=== PATIENT | female | born 1930 | race Caucasian/White ===

== ENCOUNTER 2016-05-26 04:14 | Emergency (ER) | payer MEDICARE, MEDICAID ==
[~2016-05-26] VITALS: Ht 167.6 cm; Wt 90.7 kg
[~2016-05-26 04:14] MED LIST: ATOR10TA PO; OMEP10CA4 PO
[2016-05-26] MEDS ORDERED: LORAZEPAM 1 MG TABLET PO ONE (04:30)
[2016-05-26] MEDS ORDERED: CLONIDINE HCL 0.1 MG TABLET PO ONE (04:30)
[2016-05-26] MEDS ORDERED: LORAZEPAM 1 MG TABLET ONE (04:33)
[2016-05-26] MEDS ORDERED: CLONIDINE HCL 0.1 MG TABLET ONE (04:33)
[2016-05-26 05:17] LABS: CALCIUM, SERUM 8.5 mg/dL (8.5-10.1); CREATININE 0.9 mg/dL (0.6-1.3); POTASSIUM 4.5 mmol/L (3.5-5.1)
[2016-05-26 05:18] LABS: HEMOGLOBIN 13.2 g/dL (11.5-14.8); RED BLOOD CELL COUNT(AUTO) 4.45 MIL/uL (4.0-5.2); WHITE BLOOD COUNT (AUTO) 6.3 K/uL (4.3-11.0)
[2016-05-26 05:19] LABS: BASOPHILS # (AUTO) 0.1 /CMM (0.0-0.2); BASOPHILS % (AUTO) 0.9 % (0.0-2.0); DIFF TOTAL % 100 %; EOSINOPHILS # (AUTO) 0.2 /CMM (0.0-0.7); EOSINOPHILS % (AUTO) 3.1 % (0.0-6.0); HEMATOCRIT 40 % (33-45); LYMPHOCYTES % (AUTO) 32.3 % (20.0-44.0); MEAN CORPUSCULAR HEMOGLOBIN 30 PG (26.0-33.0); MEAN CORPUSCULAR HGB CONC 33 g/dl (31.0-36.0); MEAN CORPUSCULAR VOLUME 90 fL (82-100); MONOCYTES # (AUTO) 0.5 /CMM (0.1-1.30); MONOCYTES % (AUTO) 7.5 % (2.0-12.0); NEUTROPHILS # (AUTO) 3.5 /CMM (1.8-8.9); NEUTROPHILS % (AUTO) 56.2 % (43.0-81.0); PLATELET COUNT (AUTO) 209 /CMM (150-450)
[2016-05-26 05:23] LABS: BILIRUBIN,DIRECT 0.1 mg/dL (0.0-0.2); BILIRUBIN,TOTAL 0.6 mg/dL (0.2-1.0); INDIRECT BILIRUBIN 0.5 mg/dL (0.0-1.1); TOTAL PROTEIN, SERUM 6.7 g/dL (6.4-8.2)
[2016-05-26 06:30] VITALS: BP 172/79
== END 2016-05-26 06:32 | disposition home or self-care (01) ==
LOC: EDUNIT# 04:14 → ER 04:24
DX: F41.9 Anxiety disorder, unspecified (principal); I10 Essential (primary) hypertension; R40.4 Transient alteration of awareness; E78.00 Pure hypercholesterolemia, unspecified; M25.561 Pain in right knee; G89.29 Other chronic pain
CPT/HCPCS: 36415; 70450-TC; 80048-TC; 80076-TC; 85025-TC; A4606; Z7610

== ENCOUNTER 2017-01-31 00:49 | Emergency (ER) | payer MEDICARE, MEDICAID ==
[~2017-01-31] VITALS: Ht 170.2 cm; Wt 81.6 kg
--- NOTE | 2017-01-31 00:52 | NUR ---
BB RA FROM HOME FOR BURNING WITH URINATION. PT AO RR EVEN AND UNLABORED. NO SOB NOTED. NAD NOTED. NO NVD AT THIS TIME. PT GOWNED AND PLACED ON MONITOR WAITING FOR MD JETER. DAUGHTER AT BEDSIDE
--- NOTE | 2017-01-31 00:52 | NUR ---
Pt SLIMRA ACCOMPANIED BY FAMILY. D/T PAIN ON URINATION. Pt WAITING IN ER BED 2. IN STABLE CONDITION. WAITING TO BE SEEN BY .
--- NOTE | 2017-01-31 02:08 | NUR ---
URINE SAMPLE COLLECTED. LAB NOTIFIED.
[2017-01-31 02:10] LABS: APPEARANCE,URINE CLEAR (CLEAR); BILIRUBIN,URINE NEGATIVE (NEGATIVE); BLOOD, URINE NEGATIVE Ery/uL (NEGATIVE); COLOR,URINE YELLOW (YELLOW); KETONES,URINE NEGATIVE (NEGATIVE); LEUKOCYTE ESTERASE ,URINE 1+ (NEGATIVE); NITRITE, URINE NEGATIVE (NEGATIVE); PROTEIN,URINE NEGATIVE (NEGATIVE); UGLUCOSE NEGATIVE (NEGATIVE); UROBILINOGEN,URINE 0.2 EU/dL (0.2)
--- NOTE | 2017-01-31 02:15 | NUR ---
BLADDER SCANNER DONE. URINE RETENTION OF 61ML.
[2017-01-31 02:22] LABS: RBC,URINE NONE SEEN /HPF (0-2); WBC,URINE 25-35 /HPF (0-3)
[2017-01-31 02:23] LABS: BACTERIA,URINE None seen /HPF (None Seen); SQUAMOUS EPITHELIAL CELL,UR Few /HPF (None Seen)
--- NOTE | 2017-01-31 03:10 | NUR ---
Patient discharged to home in stable condition. Written and verbal after care instructions given. Patient verbalizes understanding of instruction. Accompanied with daughter at bedside. Discharged with wheelchair. Pt in waiting room with daughter waiting for taxi for transport back home.
[2017-01-31 03:19] VITALS: BP 140/58
== END 2017-01-31 03:10 | disposition home or self-care (01) ==
LOC: ER 00:51
DX: N30.90 Cystitis, unspecified without hematuria (principal); E78.00 Pure hypercholesterolemia, unspecified; G89.29 Other chronic pain; I10 Essential (primary) hypertension
CPT/HCPCS: 81001; 87086; 99284; A4606; 81000-TC; Z7610

== ENCOUNTER 2017-03-02 20:13 | Emergency (ER) | payer MEDICARE, MEDICAID ==
[~2017-03-02] VITALS: Ht 162.6 cm; Wt 59.0 kg
--- NOTE | 2017-03-02 20:15 | NUR ---
PT BIBRA FROM HOME TO ER BED 10. C/O HYPERTENSION, TREMORS WORST IN THE MORNING. PT ALSO C/O BUZZING IN THE EARS. GOWNED AND PLACED ON MONITOR. STABLE VITALS AT THIS TIME. FAMILY AT BEDSIDE TO TRANSLATE. AWAITING MD JETER.
--- NOTE | 2017-03-02 20:41 | NUR ---
DR CAMPBELL AT BEDSIDE FOR EVAL.
--- NOTE | 2017-03-02 20:41 | NUR ---
Jennifer mendez in [facility] - 03/02/17 at [address] CAMPBELL AT [facility].
--- NOTE | 2017-03-02 20:55 | NUR ---
IV LINE STARTED BLOOD DRAWN AND SENT TO LAB.
--- NOTE | 2017-03-02 20:59 | NUR ---
RADIOLOGY AT BEDSIDE FOR CHEST XRAY.
[2017-03-02 21:00] LABS: BASOPHILS % (AUTO) 0.7 % (0.0-2.0); EOSINOPHILS # (AUTO) 0.2 /CMM (0.0-0.7); EOSINOPHILS % (AUTO) 2.9 % (0.0-6.0); HEMATOCRIT 39 % (33-45); HEMOGLOBIN 13.1 g/dL (11.5-14.8); LYMPHOCYTES % (AUTO) 29.1 % (20.0-44.0); MEAN CORPUSCULAR HEMOGLOBIN 30 PG (26.0-33.0); MEAN CORPUSCULAR HGB CONC 34 g/dl (31.0-36.0); MEAN CORPUSCULAR VOLUME 89 fL (82-100); MONOCYTES # (AUTO) 0.6 /CMM (0.1-1.30); MONOCYTES % (AUTO) 8.9 % (2.0-12.0); NEUTROPHILS % (AUTO) 58.4 % (43.0-81.0); PLATELET COUNT (AUTO) 263 /CMM (150-450); RDW COEFFICIENT OF VARIATION 12.9 (11.5-15.0); RED BLOOD CELL COUNT(AUTO) 4.37 MIL/uL (4.0-5.2); WHITE BLOOD COUNT (AUTO) 6.8 K/uL (4.3-11.0)
[2017-03-02 21:10] LABS: CALCIUM, SERUM 8.7 mg/dL (8.5-10.1); CARBON DIOXIDE 27 mmol/L (21-32); CHLORIDE 99 mmol/L (98-107); GLUCOSE 113 mg/dL (74-106); POTASSIUM 4.6 mmol/L (3.5-5.1); SODIUM SERUM 133 mmol/L (136-145); UREA NITROGEN, BLOOD 19 mg/dL (7-18)
[2017-03-02 21:16] LABS: ALANINE AMINOTRANSFERASE 18 U/L (12-78); ALKALINE PHOSPHATASE 73 U/L (46-116); ASPARTATE AMINOTRANSFERASE 20 U/L (15-37); BILIRUBIN,DIRECT 0.1 mg/dL (0.0-0.2); BILIRUBIN,TOTAL 0.3 mg/dL (0.2-1.0); TOTAL PROTEIN, SERUM 6.7 g/dL (6.4-8.2)
[2017-03-02 21:17] LABS: TROPONIN I < 0.017 ng/mL (0.00-0.056)
[2017-03-02 21:17] LABS: APPEARANCE,URINE Clear (CLEAR); BILIRUBIN,URINE Negative (NEGATIVE); BLOOD, URINE Trace-lysed Ery/uL (NEGATIVE); COLOR,URINE Yellow (YELLOW); KETONES,URINE Negative (NEGATIVE); LEUKOCYTE ESTERASE ,URINE Small (NEGATIVE); NITRITE, URINE Negative (NEGATIVE); PH,URINE 5.5 (5.0-8.0); PROTEIN,URINE Negative (NEGATIVE); UGLUCOSE Negative (NEGATIVE); UROBILINOGEN,URINE 0.2 EU/dL (0.2)
[2017-03-02 21:47] LABS: BACTERIA,URINE Few /HPF (None Seen)
[2017-03-02 21:48] LABS: SQUAMOUS EPITHELIAL CELL,UR Moderate /HPF (None Seen)
[2017-03-02 22:26] VITALS: BP 132/76
--- NOTE | 2017-03-02 22:26 | NUR ---
Patient discharged to home in stable condition. Written and verbal after care instructions given. Patient verbalizes understanding of instruction.IV removed. Catheter intact and site benign. Pressure and 4x4 applied to site. No bleeding noted.
== END 2017-03-02 22:27 | disposition home or self-care (01) ==
LOC: ER 20:16
DX: R51 Headache (principal); R53.1 Weakness; R11.0 Nausea; I10 Essential (primary) hypertension; J90 Pleural effusion, not elsewhere classified; E78.00 Pure hypercholesterolemia, unspecified; F41.9 Anxiety disorder, unspecified
CPT/HCPCS: 36415; 70450; 71010; 80048; 80076; 81001; 84484; 85025; 93005; 99285; A4606; 81000-TC; Z7610

== ENCOUNTER 2017-03-12 22:04 | Inpatient (IN) | payer MEDICARE, MEDICAID ==
[~2017-03-12] VITALS: Ht 167.6 cm; Wt 86.2 kg
--- NOTE | 2017-03-12 22:06 | NUR ---
pt bibra from home to er bed 09. pt is w/ daughter w/ multiple complaints. dauther states pt is not feeling well x 3 days. blood pressure is always high. small urine output. also c/o ble swelling noted today. pt is gowned and placed on monitor. stabel vitals. awaiting md andres.
--- NOTE | 2017-03-12 22:25 | NUR ---
dr perkins at bedside for eval.
[2017-03-12] MEDS ORDERED: ASPIRIN 81 MG TAB.CHEW PO ONE (22:30)
--- NOTE | 2017-03-12 22:41 | NUR ---
iv line started blood drawn and sent to lab.
[2017-03-12 22:49] LABS: BASOPHILS % (AUTO) 0.4 % (0.0-2.0); EOSINOPHILS # (AUTO) 0.2 /CMM (0.0-0.7); EOSINOPHILS % (AUTO) 2.4 % (0.0-6.0); HEMATOCRIT 40 % (33-45); LYMPHOCYTES % (AUTO) 25.9 % (20.0-44.0); MEAN CORPUSCULAR HEMOGLOBIN 29 PG (26.0-33.0); MEAN CORPUSCULAR HGB CONC 33 g/dl (31.0-36.0); MEAN CORPUSCULAR VOLUME 90 fL (82-100); MONOCYTES # (AUTO) 0.7 /CMM (0.1-1.30); NEUTROPHILS # (AUTO) 4.8 /CMM (1.8-8.9); NEUTROPHILS % (AUTO) 62.3 % (43.0-81.0); PLATELET COUNT (AUTO) 244 /CMM (150-450); RDW COEFFICIENT OF VARIATION 13.5 (11.5-15.0); RED BLOOD CELL COUNT(AUTO) 4.41 MIL/uL (4.0-5.2); WHITE BLOOD COUNT (AUTO) 7.7 K/uL (4.3-11.0)
[2017-03-12] MEDS ORDERED: ASPIRIN 81 MG TAB.CHEW ONE (22:49)
--- NOTE | 2017-03-12 22:59 | NUR ---
radiology at bedside for chest xray.
[2017-03-12 23:04] LABS: INR 0.99 (0.87-1.13); PROTHROMBIN TIME 10.3 SECS (9.5-12.7)
[2017-03-12 23:09] LABS: TROPONIN I < 0.017 ng/mL (0.00-0.056)
--- NOTE | 2017-03-12 23:09 | NUR ---
pt to radiology for abdominal ct scan via [facility].
[2017-03-12 23:14] LABS: ALANINE AMINOTRANSFERASE 18 U/L (12-78); ALBUMIN 3.2 g/dL (3.4-5.0); ALKALINE PHOSPHATASE 75 U/L (46-116); ASPARTATE AMINOTRANSFERASE 16 U/L (15-37); B-TYPE NATRIURETIC PEPTIDE 240 PG/ML (0-125); BILIRUBIN,DIRECT 0.1 mg/dL (0.0-0.2); BILIRUBIN,TOTAL 0.4 mg/dL (0.2-1.0); CALCIUM, SERUM 8.9 mg/dL (8.5-10.1); CARBON DIOXIDE 26 mmol/L (21-32); CHLORIDE 90 mmol/L (98-107); GLUCOSE 110 mg/dL (74-106); LIPASE 255 U/L (73-393); POTASSIUM 4.4 mmol/L (3.5-5.1); SODIUM SERUM 122 mmol/L (136-145); TOTAL PROTEIN, SERUM 6.9 g/dL (6.4-8.2); UREA NITROGEN, BLOOD 26 mg/dL (7-18)
[2017-03-12 23:14] LABS: APPEARANCE,URINE CLEAR (CLEAR); BILIRUBIN,URINE NEGATIVE (NEGATIVE); BLOOD, URINE TRACE-INTA Ery/uL (NEGATIVE); COLOR,URINE YELLOW (YELLOW); KETONES,URINE NEGATIVE (NEGATIVE); LEUKOCYTE ESTERASE ,URINE 1+ (NEGATIVE); NITRITE, URINE NEGATIVE (NEGATIVE); PH,URINE 5.5 (5.0-8.0); PROTEIN,URINE NEGATIVE (NEGATIVE); UGLUCOSE NEGATIVE (NEGATIVE); UROBILINOGEN,URINE 0.2 EU/dL (0.2)
[2017-03-12 23:22] LABS: BACTERIA,URINE None seen /HPF (None Seen)
[2017-03-12 23:23] LABS: SQUAMOUS EPITHELIAL CELL,UR Few /HPF (None Seen)
--- NOTE | 2017-03-12 23:35 | NUR ---
PAGED DR. BISWAS
--- NOTE | 2017-03-12 23:40 | NUR ---
mallorie verbal order for 250cc ns bolus. carried out.
--- NOTE | 2017-03-12 23:50 | NUR ---
report given to sandy. pt awaiting transfer to floor.
[2017-03-13] VITALS (8 sets, daily range): BP systolic 103–166; BP diastolic 53–81
[2017-03-13] MEDS ORDERED: Z GUARD REMEDY 2 OZ OINT TP PRN
[2017-03-13] MEDS ORDERED: IV NS 0.9% 1,000 ML BAG IV ONE
[2017-03-13] MEDS ORDERED: HYDROCODONE/APAP 5/325MG 1 EACH TABLET PO PRN
[2017-03-13] MEDS ORDERED: MAG HYDROX/AL HYDROX/SIMETH 30 ML UDC PO PRN
[2017-03-13] MEDS ORDERED: ZOLPIDEM TARTRATE 5 MG TABLET PO PRN
[2017-03-13] MEDS ORDERED: ACETAMINOPHEN 325 MG TABLET PO PRN
[2017-03-13] MEDS ORDERED: ALBUTEROL FS 2.5 MG/3 ML VIAL.NEB NEB PRN
[2017-03-13] MEDS ORDERED: MAGNESIUM HYDROXIDE 30 ML UDC PO PRN
[2017-03-13] MEDS ORDERED: ONDANSETRON HCL/PF 4 MG/2 ML VIAL IVP PRN
[2017-03-13] MEDS ORDERED: IV NS 0.9% 1,000 ML IV SCH
[2017-03-13 00:43] LABS: OSMOLALITY,SERUM 261 mOS/kg (278-305); OSMOLALITY,URINE 327 mOS/kg (340-1090)
[2017-03-13] MEDS ORDERED: CEFTRIAXONE 1 G VIAL ONE (00:55)
[2017-03-13] MEDS ORDERED: hydrALAZINE HCL 25 MG TABLET ONE (00:56)
--- NOTE | 2017-03-13 01:00 | NUR ---
TELE WELDING MACHINE OPERATOR [employer] INITIAL NOTES RECEIVED PT FROM ER VIA JANEEN ACCOMPANIED BY ER NURSE , EMANUEL OF HYPONATREMIA. PT BURUNDIAN SPEAKING ACCOMPANIED BY HER DAUGHTER THAT HELPED TO TRANSLATE AND AT THE SAME TIME PROVIDE SOME INFORMATION . PT IS ALERT ORIENTED , AMBULATORY AND BURUNDIAN SPEAKING ONLY. ORIENTED WHERE SHE AT AND HOW TO USED THE CALL LIGHT SYSTEM. DENIES ANY PAIN OR ANY DISCOMFORT. SKIN WARM AND DRY TO TOUCH. BREATHING EVEN AND NON-LABORED. TELE APPLIED AND EXPLAINED TO THE DAUGHTER AND PT WHAT THE PURPOSE OF IT AND PT UNDERSTOOD WELL, KEPT HER WARM AND COMFORTABLE AT ALL TIMES. PLACE CALL LIGHT AT REACH. BED ALARM SET FOR PT SAFETY.
[2017-03-13] MEDS: hydrALAZINE HCL 25 MG TABLET PO PRN (01:06)
[2017-03-13] MEDS: CEFTRIAXONE 1 G in IV D5W 50 ML IV SCH (01:19)
[2017-03-13 06:43] LABS: EOSINOPHILS # (AUTO) 0.3 /CMM (0.0-0.7); EOSINOPHILS % (AUTO) 4.2 % (0.0-6.0); HEMATOCRIT 38 % (33-45); HEMOGLOBIN 12.7 g/dL (11.5-14.8); LYMPHOCYTES # (AUTO) 1.9 /CMM (0.8-4.8); LYMPHOCYTES % (AUTO) 27.7 % (20.0-44.0); MEAN CORPUSCULAR HEMOGLOBIN 30 PG (26.0-33.0); MEAN CORPUSCULAR HGB CONC 34 g/dl (31.0-36.0); MEAN CORPUSCULAR VOLUME 89 fL (82-100); MONOCYTES # (AUTO) 0.7 /CMM (0.1-1.30); MONOCYTES % (AUTO) 9.8 % (2.0-12.0); NEUTROPHILS % (AUTO) 58.3 % (43.0-81.0); PLATELET COUNT (AUTO) 229 /CMM (150-450); RDW COEFFICIENT OF VARIATION 12.8 (11.5-15.0); RED BLOOD CELL COUNT(AUTO) 4.22 MIL/uL (4.0-5.2); WHITE BLOOD COUNT (AUTO) 6.8 K/uL (4.3-11.0)
[2017-03-13 06:54] LABS: CALCIUM, SERUM 8.4 mg/dL (8.5-10.1); CARBON DIOXIDE 25 mmol/L (21-32); CHLORIDE 96 mmol/L (98-107); GLUCOSE 99 mg/dL (74-106); MAGNESIUM 1.7 mg/dL (1.8-2.4); PHOSPHORUS 3.2 mg/dL (2.5-4.9); POTASSIUM 4.1 mmol/L (3.5-5.1); SODIUM SERUM 129 mmol/L (136-145); UREA NITROGEN, BLOOD 20 mg/dL (7-18)
[2017-03-13 07:11] LABS: TROPONIN I < 0.017 ng/mL (0.00-0.056)
[2017-03-13 07:13] LABS: CHOLESTEROL 196 mg/dL (<200); HDL CHOLESTEROL 50 mg/dL (40-60); LDL 123 mg/dL (0-99); TRIGLYCERIDES 85 mg/dL (30-150)
[2017-03-13 07:50] LABS: THYROID STIMULATING HORMONE 2.074 uIU/mL (0.358-3.74)
[2017-03-13] MEDS: LISINOPRIL (10MG) 10 MG TABLET PO SCH (09:17)
[2017-03-13] MEDS: ASPIRIN 81 MG TAB.CHEW PO SCH (09:18)
[2017-03-13] MEDS: Magnesium 1GM/D5W 100ML PREMIX 100 ML IV SCH ×2 (09:20→10:51)
[2017-03-13] MEDS ORDERED: Magnesium 1GM/D5W 100ML PREMIX 100 ML IV SCH (10:00)
[2017-03-13] MEDS ORDERED: FUROSEMIDE 20 MG/2 ML VIAL IV ONE (11:30)
--- NOTE | 2017-03-13 13:00 | NUR ---
EVE IN TO SEE PT. ORDERS GIVEN.SPOKE TO DTR. AT LENGTH.
--- NOTE | 2017-03-13 14:00 | NUR ---
MG. REPLACEMENT DONE,FAMILY IN TO VISIT.
[2017-03-13 16:59] LABS: URINE SODIUM, RANDOM 77 mmol/l (40-220)
--- NOTE | 2017-03-13 19:30 | NUR ---
RN NOTES RECEIVED PT. AWAKE ON BED, A/OX4, TUVALUAN SPEAKING, DENIES PAIN, NO SOB, CALL LIGHT WITHIN REACH, SIDERAILS UPX2 CONTINUE TO MONITOR
[2017-03-13 19:44] LABS: OSMOLALITY,URINE 327 mOS/kg (340-1090)
[2017-03-13] MEDS: ATORVASTATIN 10 MG TABLET PO SCH (22:24)
[2017-03-14] MEDS: CEFTRIAXONE 1 G in IV D5W 50 ML IV SCH (00:41)
--- NOTE | 2017-03-14 06:29 | NUR ---
RN NOTES AWAKE, DENIES PAIN, NO SOB, MORNING CARE RENDERED, CALL LIGHT WITHIN REACH, SIDERAILS UPX2 PT. NEEDS ATTENDED
[2017-03-14 06:50] LABS: CALCIUM, SERUM 8.3 mg/dL (8.5-10.1); CARBON DIOXIDE 26 mmol/L (21-32); CHLORIDE 98 mmol/L (98-107); GLUCOSE 87 mg/dL (74-106); PHOSPHORUS 3.7 mg/dL (2.5-4.9); POTASSIUM 4.4 mmol/L (3.5-5.1); SODIUM SERUM 131 mmol/L (136-145); UREA NITROGEN, BLOOD 15 mg/dL (7-18)
[2017-03-14 06:52] LABS: THYROID STIMULATING HORMONE 1.992 uIU/mL (0.358-3.74)
[2017-03-14 07:27] LABS: OSMOLALITY,URINE 272 mOS/kg (340-1090)
[2017-03-14 07:52] LABS: URINE SODIUM, RANDOM 51 mmol/l (40-220)
[2017-03-14 08:00] VITALS: BP 112/53
--- NOTE | 2017-03-14 08:15 | NUR ---
MS RN NOTES PATIENT IN BED, AWAKE. A/O X3, FRENCH SPEAKING, COOPERATIVE. BREATH SOUNDS CLEAR. IV IN LEFT AC INTACT, APPEARS COMFORTABLE IN BED, HAS BSC. CALL LIGHT WITHIN REACH. WILL CONT TO MONITOR.
[2017-03-14] MEDS: LISINOPRIL (10MG) 10 MG TABLET PO SCH (08:32)
[2017-03-14] MEDS: ASPIRIN 81 MG TAB.CHEW PO SCH (08:32)
[2017-03-14] MEDS ORDERED: HYDROCHLOROTHIAZIDE 25 MG TABLET PO SCH (09:00)
[2017-03-14 16:00] VITALS: BP 116/59
--- NOTE | 2017-03-14 18:47 | NUR ---
MS RN CLOSING NOTES PATIENT IN BED, A/O X3. BREATHING EVEN AND NON LABORED, NO SOB. COOPERATIVE. PATIENT IS AMBULATORY WITH ASSIST/WALKER. DENIES ANY DISCOMFORT. ON ANTIBIOTIC WITH NO ADVERSE REACTION, AFEBRILE. INSTRUCTED TO USE CALL LIGHT IF SHE NEEDS ASSISTANCE. CONT HOSPITALIZATION PER MD, WILL ENDORSE TO ANCHORMAN RN FOR JOMAR.
[2017-03-14 20:00] VITALS: BP 159/54
--- NOTE | 2017-03-14 20:00 | NUR ---
RN NOTES RECEIVED PATIENT IN BED, ALERT AND ORIENTED X3, GIBRALTARIAN SPEAKING ONLY, NO DISTRESS, TOLERATING ROOM AIR, NO COMPLAIN OF PAIN, ON WATER RESTRICTION SECONDARY TO HYPONATREMIA, CONTINENT OF BOWEL AND BLADDER, ABLE TO USE BSC WITH ASSISTANCE. NEEDS ATTENDED, CALL LIGHT WITHIN REACH.
[2017-03-14] MEDS: ATORVASTATIN 10 MG TABLET PO SCH (22:34)
[2017-03-14] MEDS: hydrALAZINE HCL 25 MG TABLET PO PRN (22:34)
[2017-03-15] MEDS: CEFTRIAXONE 1 G in IV D5W 50 ML IV SCH (00:14)
--- NOTE | 2017-03-15 00:15 | NUR ---
RN NOTES RECEIVED REPORT FROM OUTGOING RN. PATIENT IS ALERT AND ORIENTED X3, ST HELENIAN SPEAKING, ABLE TO VERBALIZE NEEDS, NO DISTRESS, TOLERATING ROOM AIR, ABLE TO TRANSFER FROM BED TO BEDSIDE COMMODE WITH ASSISTANCE. CONTINENT OF BOWEL AND BLADDER, MADE SAFE AND COMFORTABLE, CALL LIGHT WITHIN REACH.
--- NOTE | 2017-03-15 06:20 | NUR ---
RN NOTES PATIENT IS AWAKE AND ALERT, NO SOB, NO DISTRESS, DENIES ANY PAIN AT THIS TIME, ASSISTED TO BSC, ALL NEEDS ATTENDED, CALL LIGHT WITHIN REACH.
--- NOTE | 2017-03-15 07:15 | NUR ---
MS RN NOTES PATIENT IN BED, LYING COMFORTABLY. AWAKE, A/O X3. BREATHING NON LABORED, NO SOB. ON FLUID RESTRICTION, INSTRUCTED PATIENT TO USE CALL LIGHT IF SHE NEEDS ASSISTANCE, VERBALIZED UNDERSTANDING. BED LOW AND LOCKED, SIDE RAILS UP X2. WILL CONT TO MONITOR.
[2017-03-15 08:00] VITALS: BP 130/69
[2017-03-15 08:02] LABS: CALCIUM, SERUM 8.5 mg/dL (8.5-10.1); CARBON DIOXIDE 25 mmol/L (21-32); CHLORIDE 97 mmol/L (98-107); CREATININE 0.9 mg/dL (0.6-1.3); GLUCOSE 98 mg/dL (74-106); MAGNESIUM 1.9 mg/dL (1.8-2.4); PHOSPHORUS 3.5 mg/dL (2.5-4.9); POTASSIUM 4.6 mmol/L (3.5-5.1); SODIUM SERUM 129 mmol/L (136-145); UREA NITROGEN, BLOOD 13 mg/dL (7-18)
[2017-03-15 08:23] LABS: BASOPHILS % (AUTO) 0.2 % (0.0-2.0); EOSINOPHILS # (AUTO) 0.1 /CMM (0.0-0.7); EOSINOPHILS % (AUTO) 2.3 % (0.0-6.0); HEMATOCRIT 38 % (33-45); HEMOGLOBIN 12.4 g/dL (11.5-14.8); LYMPHOCYTES # (AUTO) 1.7 /CMM (0.8-4.8); LYMPHOCYTES % (AUTO) 27.9 % (20.0-44.0); MEAN CORPUSCULAR HEMOGLOBIN 29 PG (26.0-33.0); MEAN CORPUSCULAR HGB CONC 33 g/dl (31.0-36.0); MEAN CORPUSCULAR VOLUME 89 fL (82-100); MONOCYTES # (AUTO) 0.6 /CMM (0.1-1.30); MONOCYTES % (AUTO) 9.9 % (2.0-12.0); NEUTROPHILS # (AUTO) 3.7 /CMM (1.8-8.9); NEUTROPHILS % (AUTO) 59.7 % (43.0-81.0); PLATELET COUNT (AUTO) 211 /CMM (150-450); RED BLOOD CELL COUNT(AUTO) 4.25 MIL/uL (4.0-5.2); WHITE BLOOD COUNT (AUTO) 6.1 K/uL (4.3-11.0)
[2017-03-15 09:20] VITALS: BP 130/69
[2017-03-15] MEDS: ASPIRIN 81 MG TAB.CHEW PO SCH (09:20)
[2017-03-15] MEDS: LISINOPRIL (10MG) 10 MG TABLET PO SCH (09:20)
[2017-03-15] MEDS ORDERED: LISI10TA59 PO (11:34)
[2017-03-15] MEDS ORDERED: LEVO500T15 PO (11:34)
[2017-03-15] MEDS ORDERED: ASPI81TA2 PO (11:34)
[2017-03-15] MEDS ORDERED: HYDR-4076 PO (11:34)
--- NOTE | 2017-03-15 11:47 | NUR ---
PATIENT TO BE DISCHARGED HOME TODAY ORDERED AFTER ECHO TEST.
--- NOTE | 2017-03-15 13:48 | NUR ---
MS RN DISCHARGED PATIENT HAS BEEN CLEARED FOR DISCHARGE HOME. VS REMAINS STABLE, NO EPISODE OF DIZZINESS. PATIENT IS AMBULATORY WITH ASSIST/WALKER, TOLERATING ROOM AIR, NO SOB. SKIN INTACT. VOIDED WITHOUT DIFFICULTY. IV IN LEFT AC REMOVED, GAUZE APPLIED, NO BLEEDING NOTED. PATIENT IS SEEN BY LOUIE TODAY. DISCHARGE INSTRUCTION GIVEN TO THE DAUGHTER-LUCINA, VERBALIZED UNDERSTANDING. BELONGINGS CHECKED AND PRESCRIPTION GIVEN TO THE DAUGHTER PRIOR DC. PATIENT LEFT HOSP IN STABLE CONDITION VIA TAXI, ACCOMPANIED BY DAUGHTER-LUCINA.
== END 2017-03-15 13:40 | disposition home or self-care (01) | DRG 291 ==
LOC: ER 22:07 → TELE 23:36 → MED 03-13 08:30
PROVIDERS: ADMIT Internal Medicine; ATTEND Internal Medicine
DX: I11.0 Hypertensive heart disease with heart failure (principal); G93.41 Metabolic encephalopathy; E44.0 Moderate protein-calorie malnutrition; K56.7 Ileus, unspecified; E83.42 Hypomagnesemia; E87.1 Hypo-osmolality and hyponatremia; N39.0 Urinary tract infection, site not specified; I50.9 Heart failure, unspecified; F41.9 Anxiety disorder, unspecified; E78.5 Hyperlipidemia, unspecified; F03.90 Unspecified dementia, unspecified severity, without behavioral disturbance, psychotic disturbance, mood disturbance, and anxiety; Z68.30 Body mass index [BMI] 30.0-30.9, adult; Z79.899 Other long term (current) drug therapy; N28.89 Other specified disorders of kidney and ureter; B96.20 Unspecified Escherichia coli [E. coli] as the cause of diseases classified elsewhere; K21.9 Gastro-esophageal reflux disease without esophagitis; E66.9 Obesity, unspecified
CPT/HCPCS: 36415; 71010-TC; 76770-TC; 80048-TC; 80061-TC; 80076-TC; 81000-TC; 82746; 83540-TC; 83690-TC; 83735-TC; 83880; 83935-TC; 84100-TC; 84300-TC; 84443-TC; 84484-TC; 84550-TC; 85025-TC; 85730-TC; 87081-TC; 87086-TC; 87186-TC; 93307-TC; A4606; J0696; J1940; J3475; J7030; J7050; J7060; Z7610

== ENCOUNTER 2017-05-16 00:27 | Inpatient (IN) | payer MEDICARE, MEDICAID ==
[~2017-05-16] VITALS: Ht 165.1 cm; Wt 72.6 kg
[~2017-05-16 00:27] MED LIST changes: +ASPI-1169 PO; +HYDR-4076 PO; +LEVO500T75 PO; +LISI10TA59 PO
--- NOTE | 2017-05-16 00:30 | NUR ---
PT BIBA#88 FROM HOME, PT C/O N/V X 3 HOURS POISER. PATIENT IS ALERT AND RESPONSIVE. VSS. NAD NOTED. BREATHING EVEN AND UNLABORED. PLACED PATIENT ON VS/TELE MONITORING. NONDIPAHORETIC. GOWNED. COMFORT AND SAFETY MEASURES IN PLACE.
--- NOTE | 2017-05-16 00:33 | NUR ---
DR TIDWELL AT BEDSIDE.
--- NOTE | 2017-05-16 00:35 | NUR ---
STARTED A SALINE LOCK ON THE LEFT WRIST G20, BLOOD DRAWN AND SENT TO LAB.
[2017-05-16] MEDS ORDERED: ONDANSETRON HCL/PF 4 MG/2 ML VIAL ONE (00:43)
[2017-05-16] MEDS ORDERED: MORPHINE SULFATE INJ 4 MG/ML DISP.SYRIN ONE (00:44)
[2017-05-16] MEDS ORDERED: IV NS 0.9% 500 ML BAG IV ONE (01:00)
[2017-05-16] MEDS ORDERED: ONDANSETRON HCL/PF 4 MG/2 ML VIAL IVP ONE (01:00)
[2017-05-16] MEDS ORDERED: MORPHINE SULFATE INJ 2 MG/ML DISP.SYRIN IV ONE (01:00)
--- NOTE | 2017-05-16 01:01 | NUR ---
PATIENT TO RADIOLOGY.
[2017-05-16 01:12] LABS: BASOPHILS # (AUTO) 0.1 /CMM (0.0-0.2); BASOPHILS % (AUTO) 0.6 % (0.0-2.0); EOSINOPHILS # (AUTO) 0.2 /CMM (0.0-0.7); EOSINOPHILS % (AUTO) 1.4 % (0.0-6.0); HEMATOCRIT 37 % (33-45); HEMOGLOBIN 12.7 g/dL (11.5-14.8); LYMPHOCYTES # (AUTO) 2.8 /CMM (0.8-4.8); LYMPHOCYTES % (AUTO) 23.7 % (20.0-44.0); MEAN CORPUSCULAR HEMOGLOBIN 31 PG (26.0-33.0); MEAN CORPUSCULAR HGB CONC 35 g/dl (31.0-36.0); MEAN CORPUSCULAR VOLUME 90 fL (82-100); MONOCYTES # (AUTO) 0.6 /CMM (0.1-1.30); NEUTROPHILS # (AUTO) 8.1 /CMM (1.8-8.9); NEUTROPHILS % (AUTO) 69.3 % (43.0-81.0); PLATELET COUNT (AUTO) 230 /CMM (150-450); RDW COEFFICIENT OF VARIATION 14.2 (11.5-15.0); RED BLOOD CELL COUNT(AUTO) 4.09 MIL/uL (4.0-5.2); WHITE BLOOD COUNT (AUTO) 11.7 K/uL (4.3-11.0)
[2017-05-16 01:25] LABS: INR 1.02 (0.87-1.13)
[2017-05-16 01:26] LABS: CALCIUM, SERUM 8.3 mg/dL (8.5-10.1); CARBON DIOXIDE 22 mmol/L (21-32); CHLORIDE 103 mmol/L (98-107); CREATININE 1.1 mg/dL (0.6-1.3); GLUCOSE 162 mg/dL (74-106); POTASSIUM 3.6 mmol/L (3.5-5.1); SODIUM SERUM 137 mmol/L (136-145); UREA NITROGEN, BLOOD 16 mg/dL (7-18)
[2017-05-16 01:33] LABS: ALANINE AMINOTRANSFERASE 15 U/L (12-78); ALBUMIN 3.1 g/dL (3.4-5.0); ALKALINE PHOSPHATASE 63 U/L (46-116); ASPARTATE AMINOTRANSFERASE 18 U/L (15-37); BILIRUBIN,DIRECT 0.1 mg/dL (0.0-0.2); BILIRUBIN,TOTAL 0.5 mg/dL (0.2-1.0); TOTAL PROTEIN, SERUM 6.8 g/dL (6.4-8.2)
[2017-05-16] MEDS ORDERED: PROMETHAZINE HCL 25 MG/ML AMPUL ONE (01:42)
[2017-05-16] MEDS ORDERED: PROMETHAZINE HCL 25 MG/ML AMPUL IV ONE (02:00)
[2017-05-16] MEDS ORDERED: ASPIRIN 325 MG TABLET ONE (02:45)
[2017-05-16 02:53] LABS: APPEARANCE,URINE CLEAR (CLEAR); BILIRUBIN,URINE NEGATIVE (NEGATIVE); BLOOD, URINE NEGATIVE Ery/uL (NEGATIVE); COLOR,URINE YELLOW (YELLOW); KETONES,URINE TRACE (NEGATIVE); LEUKOCYTE ESTERASE ,URINE NEGATIVE (NEGATIVE); NITRITE, URINE NEGATIVE (NEGATIVE); PROTEIN,URINE NEGATIVE (NEGATIVE); UGLUCOSE NEGATIVE (NEGATIVE); UROBILINOGEN,URINE 0.2 EU/dL (0.2)
[2017-05-16] MEDS ORDERED: ASPIRIN 325 MG TABLET PO ONE (03:00)
[2017-05-16 03:08] LABS: BACTERIA,URINE Few /HPF (None Seen); RBC,URINE 0-2 /HPF (0-2); SQUAMOUS EPITHELIAL CELL,UR Few /HPF (None Seen)
[2017-05-16] MEDS ORDERED: OLME20TA21 PO (04:13)
--- NOTE | 2017-05-16 04:55 | NUR ---
Report given to Julian DIETZ for admission and saji.
[2017-05-16] MEDS ORDERED: ZOLPIDEM TARTRATE 5 MG TABLET PO PRN (05:00)
[2017-05-16] MEDS ORDERED: MAG HYDROX/AL HYDROX/SIMETH 30 ML UDC PO PRN (05:00)
[2017-05-16] MEDS ORDERED: HYDROCODONE/APAP 5/325MG 1 EACH TABLET PO PRN (05:00)
[2017-05-16] MEDS ORDERED: hydrALAZINE HCL 25 MG TABLET PO PRN (05:00)
[2017-05-16] MEDS ORDERED: ACETAMINOPHEN 325 MG TABLET PO PRN (05:00)
[2017-05-16] MEDS ORDERED: Z GUARD REMEDY 2 OZ OINT TP PRN (05:00)
[2017-05-16] MEDS ORDERED: ONDANSETRON HCL/PF 4 MG/2 ML VIAL IVP PRN (05:00)
[2017-05-16] MEDS ORDERED: MAGNESIUM HYDROXIDE 30 ML UDC PO PRN (05:00)
--- NOTE | 2017-05-16 05:00 | NUR ---
Transferred patient to tele bed via als protocol, no incident noted. Daughter at bedside.
[2017-05-16 05:05] VITALS: BP 126/64
--- NOTE | 2017-05-16 05:05 | NUR ---
RN NOTES RECEIVED PT FROM ER, PT SI A/O X 3, EQUATORIAL GUINEAN SPEAKING ONLY, DAUGHTER AT BEDSIDE AND ABLE TO TRANSLATE. NO DISTRESS, NO SOB NOTED. RESPIRATION IS EVEN AND UNLABORED. NO C/O N/V AT THIS TIME. DENIES ANY PAIN OR CHEST PAIN AT THIS TIME. IV SITE ON RIGHT WRIST G # 20 INTACT AND PATENT. NO S/S INFILTRATION NOTED. SKIN ASSESSMENT DONE, SKIN IS INTACT. ALL NEEDS ATTENDED AND MET. KEPT COMFORTABLE. CALL LIGHT WITHIN REACH. SAFETY PRECAUTIONS OBSERVED. WILL CONTINUE TO MONITOR.
[2017-05-16] MEDS: NITROFURANTOIN MACROCRYSTAL 50 MG CAPSULE PO SCH ×3 (05:57→17:05)
--- NOTE | 2017-05-16 05:57 | NUR ---
PT AND PT'S DTR REFUSED TO TAKE ATB TABLET, RISK AND BENEFITS EXPLAINED, STILL REFUSED X3. WILL ENDORSE TO NEXT SHIFT.
--- NOTE | 2017-05-16 06:55 | NUR ---
SIGNAL CONSTRUCTOR NOTES PT IN BED, RESTING COMFORTABLY AT THIS TIME, A/O X 3, LIBYAN SPEAKING ONLY. ON SR 71 ON TELE MONITOR. NO DISTRESS, NO SOB NOTED. RESPIRATION IS EVEN AND UNLABORED. NO C/O N/V AT THIS TIME. DENIES ANY PAIN OR CHEST PAIN AT THIS TIME. IV SITE ON RIGHT WRIST G # 20 INTACT AND PATENT. ALL NEEDS ATTENDED AND MET. KEPT COMFORTABLE. CALL LIGHT WITHIN REACH. SAFETY PRECAUTIONS OBSERVED. ENDORSED TO NEXT SHIFT FOR JOMAR.
--- NOTE | 2017-05-16 07:35 | NUR ---
RN OPENING NOTES\ RECEIVED PATIENT IN BED ASLEEP, EASILY AORUSES. A/OX3, KYRGYZ SPEAKING. NO ACUTE DISTRESS, NO SOB NOTED. DENIES PAIN OR DISCOMFORT. IV SITE INTACT AND PATENT,HL. KEPT PATIENT SAFE AND COMFORTABLE IN BED. BED IN LOCKED LOW POSITION, SEMIFOWLERS, SIDERAILS UPX2, CALL LIGHT IN REACH. WILL CONTINUE TO MONITOR ACCORDINGLY. Addendum: 05/16/17 at 0738 by SAKSHI ARELLANO ON TELEMONITORING SR 66
[2017-05-16 08:00] VITALS: BP 154/73
--- NOTE | 2017-05-16 08:20 | NUR ---
RN NOTES REPORT FROM LAB OF TROPONIN 2.770, NOTIFIED DR LAU.
[2017-05-16] MEDS ORDERED: MORPHINE SULFATE INJ 4 MG/ML DISP.SYRIN IV PRN (08:30)
[2017-05-16] MEDS ORDERED: POTASSIUM CHLORIDE 20 MEQ TAB.PRT.SR PO SCH (09:00)
[2017-05-16] MEDS: FUROSEMIDE 40 MG/4 ML VIAL IV SCH ×2 (09:01→12:45)
[2017-05-16] MEDS: LISINOPRIL (10MG) 10 MG TABLET PO SCH (09:02)
[2017-05-16] MEDS: ASPIRIN 81 MG TAB.CHEW PO SCH (09:02)
[2017-05-16] MEDS: POTASSIUM CHLORIDE 20 MEQ POWDER PACKET PO SCH ×2 (09:06→12:45)
[2017-05-16 09:19] LABS: THYROID STIMULATING HORMONE 0.631 uIU/mL (0.358-3.74)
[2017-05-16 09:39] LABS: MAGNESIUM 1.8 mg/dL (1.8-2.4); PHOSPHORUS 3.5 mg/dL (2.5-4.9)
--- NOTE | 2017-05-16 15:25 | NUR ---
RN NOTES TROPONIN 2.205, CARLOS MANUEL ZAMORA MADE AWARE.
[2017-05-16 16:00] VITALS: BP 133/65
--- NOTE | 2017-05-16 17:07 | NUR ---
RN NOTES PATIENT HAS BEEN REFUSING TO TAKE ANTIBIOTIC (MACRODANTIN), CARLOS MANUEL ZAMORA NP IS AWARE.
--- NOTE | 2017-05-16 19:01 | NUR ---
RN CLOSING NOTES PATIENT IN BED RESTING. NO ACUTE DISTRESS, NO SOB. DENIES PAIN OR DISCOMFORT. NO SIGNIFICANT CHANGES IN PATIENT'S CONDITION. ALL NEEDS ATTENDED AND PROVIDED. KEPT PATIENT SAFE AND COMFORTABLE. BED IN LOW, LOCKED POSITION, SIDERAILS UPX2, SEMIFOWLER'S, CALL LIGHT IN REACH. ENDORSED TO NIGHT RN FOR JOMAR.
--- NOTE | 2017-05-16 19:30 | NUR ---
RN OPENING NOTES PATIENT IS IN BED, ALERT AND ORIENTED X3, KUWAIT[place] SPEAKING. VS STABLE. NO SOB NOTED. RESPIRATIONS EVEN AND UNLABORED. DENIES PAIN OR DISCOMFORT AT THIS TIME. IV ACCESS ON R WRIST 20 [address] PATENT AND INTACT. BED IN LOW AND LOCKED POSITION, SIDE RAILS X2. CALL LIGHT WITHIN EASY REACH. WILL CONTINUE TO MONITOR AND ASSESS DURING THE SHIFT.
[2017-05-16 20:00] VITALS: BP 92/54
[2017-05-17] VITALS: BP 107/55
[2017-05-17 04:00] VITALS: BP 118/61
[2017-05-17 06:41] LABS: BASOPHILS % (AUTO) 0.5 % (0.0-2.0); EOSINOPHILS # (AUTO) 0.1 /CMM (0.0-0.7); EOSINOPHILS % (AUTO) 2.3 % (0.0-6.0); HEMATOCRIT 34 % (33-45); HEMOGLOBIN 11.9 g/dL (11.5-14.8); LYMPHOCYTES # (AUTO) 2.1 /CMM (0.8-4.8); LYMPHOCYTES % (AUTO) 37.1 % (20.0-44.0); MEAN CORPUSCULAR HEMOGLOBIN 31 PG (26.0-33.0); MEAN CORPUSCULAR HGB CONC 35 g/dl (31.0-36.0); MEAN CORPUSCULAR VOLUME 90 fL (82-100); MONOCYTES # (AUTO) 0.5 /CMM (0.1-1.30); NEUTROPHILS # (AUTO) 2.9 /CMM (1.8-8.9); NEUTROPHILS % (AUTO) 51.1 % (43.0-81.0); PLATELET COUNT (AUTO) 201 /CMM (150-450); RDW COEFFICIENT OF VARIATION 14.1 (11.5-15.0); RED BLOOD CELL COUNT(AUTO) 3.79 MIL/uL (4.0-5.2); WHITE BLOOD COUNT (AUTO) 5.7 K/uL (4.3-11.0)
--- NOTE | 2017-05-17 06:41 | NUR ---
RN CLOSING NOTES PATIENT IS SLEEPING IN BED, EASY TO AROUSE, ALERT AND ORIENTED X3, NIUEAN SPEAKING. VS STABLE. NO SOB NOTED. RESPIRATIONS EVEN AND UNLABORED. IV ACCESS ON R WRIST 20 G SL PATENT AND INTACT. ALL NEEDS ARE MET. BED IN LOW AND LOCKED POSITION, SIDE RAILS X2. CALL LIGHT WITHIN EASY REACH. WILL ENDORSE TO RN DAY SHIFT FOR JOMAR.
[2017-05-17 07:04] LABS: ALANINE AMINOTRANSFERASE 16 U/L (12-78); ALBUMIN 2.7 g/dL (3.4-5.0); ALKALINE PHOSPHATASE 48 U/L (46-116); ASPARTATE AMINOTRANSFERASE 24 U/L (15-37); BILIRUBIN,TOTAL 0.6 mg/dL (0.2-1.0); CALCIUM, SERUM 8.1 mg/dL (8.5-10.1); CARBON DIOXIDE 31 mmol/L (21-32); CHLORIDE 105 mmol/L (98-107); CREATININE 1.3 mg/dL (0.6-1.3); GLUCOSE 89 mg/dL (74-106); MAGNESIUM 1.7 mg/dL (1.8-2.4); PHOSPHORUS 3.6 mg/dL (2.5-4.9); POTASSIUM 4.1 mmol/L (3.5-5.1); SODIUM SERUM 141 mmol/L (136-145); UREA NITROGEN, BLOOD 20 mg/dL (7-18)
[2017-05-17 07:55] LABS: TROPONIN I 1.469 ng/mL (0.00-0.056)
[2017-05-17 08:00] VITALS: BP 112/62
--- NOTE | 2017-05-17 08:00 | NUR ---
RN NOTES RECEIVED PATIENT IN THE BED TELE MONITOR, SR-74, A/O X3, VINCENTIAN SPEAKER, NO ACUTE RESPIRATORY DISTRESS, PATIENT HAS NO C/O PAIN AT THIS TIME , NO NAUSEA, VOMITING, V/S TAKEN STABLE, ASSIST PATIENT TO THE COMMODE , NEEDS ATTENDED AND ANTICIPATED, SAFETY PRECAUTION MAINTAINED ALL THE TIME. CALL LIGHT WITHIN TO REACH. CONTINUED MONITORING.
[2017-05-17] MEDS ORDERED: IOHEXOL-350 100 ML VIAL IV ONE (09:39)
[2017-05-17] MEDS ORDERED: IV NS 0.9% 250 ML IV ONE (09:39)
[2017-05-17] MEDS ORDERED: CT SWABBABLE VALVE TRANS SET 1 EA INFUS.SET MC ONE (09:39)
--- NOTE | 2017-05-17 09:46 | NUR ---
RN NOTES PATIENT OCC THERAPY ASST FOR CT ANGIOGRAM WITH 3D OF HEARD BY HEARING SPECIALIST USING WHEELCHAIR. , CONSENT FORMED SIGNED. PATIENT A/O X3, DOMINICAN SPEAKER.
[2017-05-17] MEDS ORDERED: METOPROLOL TARTRATE INJ 5 MG/5 ML AMPUL ONE ×2 (09:56→10:13)
[2017-05-17] MEDS ORDERED: NITROGLYCERIN 0.4 MG/TAB BOTTLE ONE (10:02)
--- NOTE | 2017-05-17 10:30 | NUR ---
RN NOTES PATIENT BACK FROM CT OF ANGIOGRAM HEART, SR-54, V/S TAKEN BP-108/55, P-61, 02-96 ROOM AIR, PATIENT REFUSED PAIN AT THIS TIME, NO RESPIRATORY DISTRESS, STARTED MG ON RIGHT AC AREA 100 ML/HR INTACT, NEEDS ATTENDED AND ANTICIPATED, CALL LIGHT WITHIN TO REACH,KYARA UED MONITORING. FAMILY NEXT TO THE BED.
[2017-05-17] MEDS: LISINOPRIL (10MG) 10 MG TABLET PO SCH (11:13)
[2017-05-17] MEDS: ASPIRIN 81 MG TAB.CHEW PO SCH (11:13)
[2017-05-17] MEDS ORDERED: Magnesium 1GM/D5W 100ML PREMIX 100 ML IV SCH (11:45)
[2017-05-17 12:00] VITALS: BP 97/53
--- NOTE | 2017-05-17 14:00 | NUR ---
RN NOTES ASSIST PATIENT TO THE BATHROOM, BM X1 , NEEDS ATTENDED AND ANTICIPATED, CONTINUED MONITORING.
[2017-05-17 16:00] VITALS: BP 101/55
--- NOTE | 2017-05-17 18:30 | NUR ---
RN NOTES PATIENT IN THE BED NO ACUTE RESPIRATORY DISTRESS, NO C/O PAIN AT THIS TIME, NEEDS ATTENDED AND ANTICIPATED, V/S STABLE, ASSIST ADL'S, AND BATHROOM. CALL LIGHT WITHIN TO REACH. ENDORSED ONCOMING NURSE FOR JOMAR.
--- NOTE | 2017-05-17 19:15 | NUR ---
RN OPENING NOTES RECEIVED PATIENT IN BED, AWAKE, READING A BOOK, VERBALLY RESPONSIVE, ALERT AND ORIENTED X 3, ABLE TO MAKE NEEDS KNOWN. NOTED WITH NO SOB, BREATHING EVEN AND UNLABORED, NO C/O PAIN AT THIS TIME, IN NO ACUTE DISTRESS. ALL PATIENT'S NEEDS ATTENDED TO AT THIS TIME. PLACED BED IN LOW POSITION. CALL LIGHT PLACED WITHIN EASY REACH. WILL CONTINUE TO MONITOR PATIENT.
[2017-05-17 20:08] VITALS: BP 118/60
[2017-05-18] VITALS: BP 124/65
--- NOTE | 2017-05-18 01:07 | NUR ---
RN NOTE PATIENT ASLEEP IN BED, COMFORTABLE, EASILY AROUSABLE, VERBALLY RESPONSIVE, NO SOB NOTED, BREATHING EVEN AND UNLABORED, IN NO ACUTE DISTRESS. CALL LIGHT PLACED WITHIN EASY REACH. PLACED BED IN LOW POSITION AND LOCKED IN PLACE. WILL CONTINUE TO MONITOR.
[2017-05-18 04:00] VITALS: BP 118/61
[2017-05-18 07:15] LABS: BASOPHILS % (AUTO) 0.8 % (0.0-2.0); EOSINOPHILS # (AUTO) 0.3 /CMM (0.0-0.7); EOSINOPHILS % (AUTO) 4.5 % (0.0-6.0); HEMATOCRIT 35 % (33-45); HEMOGLOBIN 12.1 g/dL (11.5-14.8); LYMPHOCYTES # (AUTO) 1.9 /CMM (0.8-4.8); LYMPHOCYTES % (AUTO) 31.3 % (20.0-44.0); MEAN CORPUSCULAR HEMOGLOBIN 31 PG (26.0-33.0); MEAN CORPUSCULAR HGB CONC 35 g/dl (31.0-36.0); MEAN CORPUSCULAR VOLUME 90 fL (82-100); MONOCYTES # (AUTO) 0.6 /CMM (0.1-1.30); MONOCYTES % (AUTO) 9.5 % (2.0-12.0); NEUTROPHILS # (AUTO) 3.3 /CMM (1.8-8.9); NEUTROPHILS % (AUTO) 53.9 % (43.0-81.0); PLATELET COUNT (AUTO) 205 /CMM (150-450); RDW COEFFICIENT OF VARIATION 14.1 (11.5-15.0); RED BLOOD CELL COUNT(AUTO) 3.86 MIL/uL (4.0-5.2); WHITE BLOOD COUNT (AUTO) 6.1 K/uL (4.3-11.0)
--- NOTE | 2017-05-18 07:25 | NUR ---
RN CLOSING NOTE PATIENT IN BED, ASLEEP, COMFORTABLE, EASILY AROUSABLE, VERBALLY RESPONSIVE, ALERT AND ORIENTED X 3, NO C/O PAIN, BREATHING EVEN AND UNLABORED, IN NO ACUTE DISTRESS. PATIENT UNDER TELE MONITORING WITH SINUS BRADYCARDIA @ 54 BPM. ALL PATIENT'S NEEDS ATTENDED TO AT THIS TIME. BED PLACED IN LOW POSITION AND LOCKED IN PLACE. ENDORSED TO AM NURSE FOR CONTINUITY OF CARE.
[2017-05-18 07:38] LABS: ALANINE AMINOTRANSFERASE 16 U/L (12-78); ALBUMIN 2.7 g/dL (3.4-5.0); ALKALINE PHOSPHATASE 51 U/L (46-116); ASPARTATE AMINOTRANSFERASE 14 U/L (15-37); BILIRUBIN,TOTAL 0.5 mg/dL (0.2-1.0); CALCIUM, SERUM 8.6 mg/dL (8.5-10.1); CARBON DIOXIDE 31 mmol/L (21-32); CHLORIDE 105 mmol/L (98-107); CREATININE 1.2 mg/dL (0.6-1.3); GLUCOSE 91 mg/dL (74-106); MAGNESIUM 2.2 mg/dL (1.8-2.4); PHOSPHORUS 3.9 mg/dL (2.5-4.9); POTASSIUM 4.7 mmol/L (3.5-5.1); SODIUM SERUM 140 mmol/L (136-145); TOTAL PROTEIN, SERUM 6.1 g/dL (6.4-8.2); UREA NITROGEN, BLOOD 19 mg/dL (7-18)
[2017-05-18 08:00] VITALS: BP 125/63
--- NOTE | 2017-05-18 08:35 | NUR ---
RN OPENING NOTES RECEIVED PATIENT IN BED ALERT ORIENTED X3. NO SOB NOTED. NO ACUTE DISTRESS NOTED. BREATHING UNLABORED. IV ACCESS PATENT AND INTACT. NO REDNESS OR SWELLING NOTED. SAFETY MEASURES IN PLACE. CALL LIGHT WITHIN REACH. WILL CONTINUE TO MONITOR ACCORDINGLY.
[2017-05-18] MEDS: ASPIRIN 81 MG TAB.CHEW PO SCH (08:53)
[2017-05-18] MEDS: LISINOPRIL (10MG) 10 MG TABLET PO SCH (08:53)
--- NOTE | 2017-05-18 13:00 | NUR ---
RN NOTES SEEN AND EVALUATED BY FELICIA ZAMORA WITH NEW ORDERS MADE. NOTED AND CARRIED OUT.
[2017-05-18] MEDS: DOCUSATE SODIUM 100 MG CAPSULE PO SCH ×2 (13:26→16:47)
[2017-05-18 16:00] VITALS: BP 125/58
--- NOTE | 2017-05-18 18:00 | NUR ---
RN CLOSING NOTES PATIENT IN BED ALERT ORIENTED. HOB ELEVATED. NO SOB NOTED. NO ACUTE DISTRESS NOTED. DENIED ANY PAIN. BREATHING UNLABORED. SKIN IS SOFT AND WARM TO TOUCH. IV ACCES PATENT AND INTACT. NO REDNESS OR SWELLING NOTED. NO S/SX OF INFILTRATION NOTED. DUE MEDICATIONS GIVEN, NO ASE NOTED. NEEDS ATTENDED AND ANTICIPATED. SAFETY MEASURES IN PLACE. CALL LIGHT WITHIN REACH. WILL CONTINUE TO MONITOR ACCORDINGLY. WILL ENDORSE TO TECHNICAL INSPECTOR FOR CONTINUITY OF CARE.
--- NOTE | 2017-05-18 19:30 | NUR ---
RN INITIAL NOTES RECEIVED PT SITTING UP AT THE EDGE OF THE BED. ALERT AND RESPONSIVE, RESPIRATIONS ARE EVEN AND UNLABORED, NOT IN ANY ACUTE DISTRESS NOTED. NO FACIAL GRIMACING OR MOANING NOTED. IV TO RAC INTACT AND PATENT. DRESSING KEPT CLEAN AND DRY. INSTRUCTED PT TO USE CALL LIGHT WHEN ASSISTANCE IS NEEDED, CALL LIGHT IS LEFT WITHIN REACH AND ABLE TO PERFORM RETURN DEMONSTRATION. BED IS KEPT AT ITS LOCKED AND LOWEST POSITION. WILL CONTINUE TO MONITOR THROUGHOUT SHIFT.
[2017-05-18 20:00] VITALS: BP 126/68
--- NOTE | 2017-05-19 06:31 | NUR ---
RN CLOSING NOTES ALL DUE MEDS GIVEN, NEEDS MET AND RENDERED. AWAKE AND RESPONSIVE, RESPIRATIONS ARE EVEN AND UNLABORED, NOT IN ANY ACUTE DISTRESS NOTED. DENIES ANY PAIN THROUGHOUT SHIFT, NO FACIAL GRIMACING OR MOANING NOTED. PERIPHERAL IV TO RAC INTACT AND PATENT, DRESSING KEPT CLEAN AND DRY. NO S/SX OF HYPO/HYPERTENSION NOTED. INSTRUCTED PT TO USE CALL LIGHT WHEN ASSISTANCE IS NEEDED, CALL LIGHT LEFT WITHIN REACH. BED IS IN ITS LOCKED AND LOWEST POSITION, BED ALARM IS ON, PT IS WEARING NON-SKID SOCKS. WILL ENDORSE TO NEXT SHIFT FOR CONTINUITY OF CARE.
--- NOTE | 2017-05-19 07:15 | NUR ---
RN OPENING NOTES RECEIVED PATIENT IN BED AWAKE, A/OX3, EQUATORIAL GUINEAN SPEAKING. NO ACUTE DISTRESS, NO SOB NOTED. DENIES PAIN OR DISCOMFORT. IV SITE INTACT AND PATENT,HL. KEPT PATIENT SAFE AND COMFORTABLE IN BED. BED IN LOCKED LOW POSITION, SEMIFOWLERS, SIDERAILS UPX2, CALL LIGHT IN REACH. WILL CONTINUE TO MONITOR ACCORDINGLY.
[2017-05-19 08:00] VITALS: BP 110/69
[2017-05-19 09:00] VITALS: BP 108/69
[2017-05-19] MEDS: LISINOPRIL (10MG) 10 MG TABLET PO SCH (09:00)
[2017-05-19] MEDS: DOCUSATE SODIUM 100 MG CAPSULE PO SCH (09:54)
[2017-05-19] MEDS: ASPIRIN 81 MG TAB.CHEW PO SCH (09:54)
[2017-05-19] MEDS ORDERED: DOCU-141 PO (11:13)
--- NOTE | 2017-05-19 13:05 | NUR ---
TEACHER LEARNING DISABLED NOTES DISCHARGE PATIENT IN STABLE CONDITION ACCOMPANIED BY DAUGHTER AND EDDI SEGOVIA VIA WHEELCHAIR. DISCHARGE INSTRUCTIONS GIVEN TO DAUGHTER, VERBALIZED UNDERSTANDING, PAPERWORK GIVEN. MEDS PRESCRIPTION GIVEN TO DAUGHTER. ALL BELONGINGS RETURNED, FORMS SIGNED. DISCONTINUED IV, APPLIED PRESSURE, NO BLEEDING, NO COMPLICATIONS NOTED. REMOVED ARMBAND.
== END 2017-05-19 12:50 | disposition home or self-care (01) | DRG 280 ==
LOC: ER 00:32 → TELE 05:03 → MED 05-18 10:48
PROVIDERS: ADMIT Internal Medicine; ATTEND Internal Medicine
DX: I16.0 Hypertensive urgency (principal); J96.01 Acute respiratory failure with hypoxia; I21.A1 Myocardial infarction type 2; K56.7 Ileus, unspecified; N28.1 Cyst of kidney, acquired; E83.42 Hypomagnesemia; I50.9 Heart failure, unspecified; N39.0 Urinary tract infection, site not specified; I11.0 Hypertensive heart disease with heart failure; E78.5 Hyperlipidemia, unspecified; D32.9 Benign neoplasm of meninges, unspecified; K21.9 Gastro-esophageal reflux disease without esophagitis; N18.9 Chronic kidney disease, unspecified; Z79.82 Long term (current) use of aspirin; Z79.899 Other long term (current) drug therapy; D25.9 Leiomyoma of uterus, unspecified
CPT/HCPCS: 36415; 70450-TC; 71045-TC; 75574; 76770-TC; 80048-TC; 80053-TC; 80061-TC; 80076-TC; 81000-TC; 82306; 83735-TC; 84100-TC; 84439-TC; 84443-TC; 84484-TC; 85025-TC; 85652-TC; 85730-TC; 87081-TC; A4606; J1940; J2270; J2405; J2550; J3475; J3490; J7040; J7050; Q9967; Z7610

== ENCOUNTER 2017-10-11 18:27 | Emergency (ER) | payer MEDICARE, MEDICAID ==
[~2017-10-11] VITALS: Ht 165.1 cm; Wt 72.6 kg
[~2017-10-11 18:27] MED LIST changes: -ATOR10TA PO; +DOCU-141 PO; -HYDR-4076 PO; -LEVO500T75 PO; -OMEP10CA4 PO
--- NOTE | 2017-10-11 18:40 | NUR ---
PT CAME IN WITH C/O DIZZY, N/V TODAY. HX OF VERTIGO PER DAUGHTER. SEEN BY MD FOR EVAL. SAFETY AND COMFORT MEASURES PROVIDED. WILL MONITOR.
[2017-10-11 18:56] LABS: BASOPHILS # (AUTO) 0.1 /CMM (0.0-0.2); BASOPHILS % (AUTO) 1.7 % (0.0-2.0); EOSINOPHILS % (AUTO) 1.9 % (0.0-6.0); HEMATOCRIT 39 % (33-45); LYMPHOCYTES # (AUTO) 1.8 /CMM (0.8-4.8); LYMPHOCYTES % (AUTO) 25.1 % (20.0-44.0); MEAN CORPUSCULAR HGB CONC 34 g/dl (31.0-36.0); MEAN CORPUSCULAR VOLUME 90 fL (82-100); MONOCYTES # (AUTO) 0.6 /CMM (0.1-1.30); MONOCYTES % (AUTO) 7.9 % (2.0-12.0); NEUTROPHILS # (AUTO) 4.7 /CMM (1.8-8.9); NEUTROPHILS % (AUTO) 63.4 % (43.0-81.0); PLATELET COUNT (AUTO) 271 /CMM (150-450); RDW COEFFICIENT OF VARIATION 12.4 (11.5-15.0); WHITE BLOOD COUNT (AUTO) 7.3 K/uL (4.3-11.0)
[2017-10-11] MEDS ORDERED: ONDANSETRON HCL/PF - ER 4 MG/2 ML VIAL IV ONE (19:00)
[2017-10-11] MEDS ORDERED: IV NS 0.9% 500 ML BAG IV ONE (19:00)
--- NOTE | 2017-10-11 19:02 | NUR ---
IV ACCESS STARTED. BLOOD DRAWN FOR LABS. MEDICATED ORDERED.
--- NOTE | 2017-10-11 19:03 | NUR ---
C/O DIZZINESS STILL, UNABLE TO PROVIDE URINE SAMPLE AT THIS TIME.
--- NOTE | 2017-10-11 19:03 | NUR ---
REPORT GIVEN TO SHIREEN DIETZ FOR JOMAR.
[2017-10-11] MEDS ORDERED: ONDANSETRON HCL/PF 4 MG/2 ML VIAL ONE (19:05)
--- NOTE | 2017-10-11 19:06 | NUR ---
pt daughter refused cxr 1900hrs
[2017-10-11 19:14] LABS: CALCIUM, SERUM 8.4 mg/dL (8.5-10.1); CARBON DIOXIDE 23 mmol/L (21-32); CHLORIDE 100 mmol/L (98-107); CREATININE 1.2 mg/dL (0.6-1.3); GLUCOSE 171 mg/dL (74-106); POTASSIUM 4.4 mmol/L (3.5-5.1); SODIUM SERUM 132 mmol/L (136-145); UREA NITROGEN, BLOOD 17 mg/dL (7-18)
[2017-10-11 19:19] LABS: TROPONIN I < 0.017 ng/mL (0.00-0.056)
--- NOTE | 2017-10-11 20:25 | NUR ---
CALLED [facility] FOR TRANSPORT BACK HOME, ETA 90 MIN, TRIP #[id number]
[2017-10-11 21:31] VITALS: BP 149/74
== END 2017-10-11 21:32 | disposition home or self-care (01) ==
LOC: ER 18:28
DX: R42 Dizziness and giddiness (principal); R11.2 Nausea with vomiting, unspecified; I10 Essential (primary) hypertension; G89.29 Other chronic pain; Z79.82 Long term (current) use of aspirin; I25.2 Old myocardial infarction; Z90.89 Acquired absence of other organs
CPT/HCPCS: 36415; 80048; 82962; 84484; 85025; 93005; 96361; 96374; 99285; A4606 ×2; J2405 ×2; J7040; Z7610